=== PATIENT | male | born 1965 ===

== ENCOUNTER 2017-05-03 10:03 | Emergency (ER) | payer MEDICAID ==
[2017-05-03 10:19] VITALS: BP 151/75; PULSE 68; RESP 20; TEMP 98.3; O2SAT 99
--- NOTE | 2017-05-03 10:50 | C.PDOC ---
History Of Present Illness Patient reports intermittent pain to the right wrist over the past 2 weeks. Patient states that the pain started after doing a lot of push ups 2 weeks ago. Patient reports that the pain has become more severe over the past several days prompting visit to the Ed. Time Seen by Provider: 05/03/17 10:24 Chief Complaint (Nursing): Upper Extremity Problem/Injury History Per: Patient History/Exam Limitations: no limitations Onset/Duration Of Symptoms: Persistent Current Symptoms Are (Timing): Still Present Quality: Sharp Severity: Mild Pain Scale Rating Of: 6 Exacerbating Factor(s): Movement, Worse At Night Recent travel outside of the [place]: No Past Medical History Reviewed: Historical Data, Nursing Documentation, Vital Signs Vital Signs: Last Vital Signs Temp 98.3 F 05/03/17 10:16 Pulse 68 05/03/17 10:16 Resp 20 05/03/17 10:16 BP 151/75 H 05/03/17 10:16 Pulse Ox 99 05/03/17 23:01 - Medical History PMH: No Chronic Diseases Family History: States: Unknown Family Hx - Social History Hx Alcohol Use: No Hx Substance Use: No - Immunization History Hx Tetanus Toxoid Vaccination: Yes Hx Influenza Vaccination: No Hx Pneumococcal Vaccination: No Review Of Systems Except As Marked, All Systems Reviewed And Found Negative. Physical Exam - Physical Exam Appears: Non-toxic, No Acute Distress Skin: Normal Color, Warm, No Rash Head: Atraumatic, Normacephalic Eye(s): bilateral: Normal Inspection Oral Mucosa: Moist Extremity: Normal ROM, Capillary Refill (< 2 sec), No Swelling, Other ( tenderness to the volar right wrist, (+) Tinnels test) Pulses: Left Radial: Normal, Right Radial: Normal Neurological/Psych: Oriented x3, Normal Motor, Normal Sensation Gait: Steady ED Course And Treatment O2 Sat by Pulse Oximetry: 99 Pulse Ox Interpretation: Normal (on RA) Medical Decision Making Medical Decision Making: Velcro wrist splint was applied by ED nurse Disposition - Disposition Referrals: Girish Winslow MD [Staff Provider] - Petros Holcomb MD [Staff Provider] - Disposition: HOME/ ROUTINE Disposition Time: 10:50 Condition: GOOD Additional Instructions: Follow up with the Hand doctor if the symptoms continue. Return if worsened, Prescriptions: Naproxen [Naprosyn] 500 mg PO BID #20 tab Instructions: Carpal Tunnel Syndrome (ED) Forms: [facility] (H[place]ian), Work Excuse - Clinical Impression Clinical Impression: Carpal tunnel syndrome
[2017-05-03] MEDS ORDERED: Naproxen 550 mg Tab PO STA (10:53)
[2017-05-03] MEDS ORDERED: Naproxen 550 mg Tab PO ONE (11:01)
== END 2017-05-03 11:13 | disposition home or self-care (01) ==
LOC: C.ER 10:03
DX: G56.01 Carpal tunnel syndrome, right upper limb (principal)